=== PATIENT | female | born 2005 | race Hispanic/Latino ===

== ENCOUNTER 2025-08-17 06:56 | Emergency (ER) | payer SELFPAY | END 2025-08-17 07:50 | LOC: ERS 06:56 | DX: M54.50 Low back pain, unspecified (principal); Z02.89 Encounter for other administrative examinations; Z55.6 Problems related to health literacy; V47.5XXA Car driver injured in collision with fixed or stationary object in traffic accident, initial encounter | CPT/HCPCS: 99283 ==